=== PATIENT | male | born 1960 | race Caucasian/White ===

== ENCOUNTER 2021-10-11 13:54 | Outpatient (RCR) | payer OTHER, SELFPAY | END 2022-03-12 15:33 | disposition home or self-care (01) | LOC: HO.WCC 13:54 | PROVIDERS: Visit Provider Surgery | DX: I70.262 Atherosclerosis of native arteries of extremities with gangrene, left leg (principal); L97.422 Non-pressure chronic ulcer of left heel and midfoot with fat layer exposed; L97.522 Non-pressure chronic ulcer of other part of left foot with fat layer exposed; L97.822 Non-pressure chronic ulcer of other part of left lower leg with fat layer exposed; S81.002A Unspecified open wound, left knee, initial encounter; S91.104A Unspecified open wound of right lesser toe(s) without damage to nail, initial encounter; Z87.891 Personal history of nicotine dependence | CPT/HCPCS: 11042; 11045; 97597; 97602; 99212; 99213; 99215 ==